=== PATIENT | female | born 2000 | race Caucasian/White ===

== ENCOUNTER 2024-11-26 19:52 | Emergency (ER) | payer OTHER, SELFPAY ==
--- NOTE | ~2024-11-26 | CT_ITS ---
Non-contrast CT scan of the Abdomen and Pelvis Clinical indication: Left flank pain Technique: 2.5 mm axial scans were obtained through the abdomen and pelvis without intravenous or or al contrast. Dose reduction technique was used on this scan by utilizing automated exposure control a nd iterative reconstruction technique. The dose-length product (DLP) was 212.52 mGy-cm. Findings: Images through the lung bases reveal no abnormalities. There is no evidence of renal or ureteral calculi. The kidneys and the ureters are nondilated. The liver, spleen, pancreas, gallbladder, and adrenals appear normal. There is no aortic aneurysm. There is no evidence of bowel obstruction. Images through the pelvis were performed. There is trace pelvic ascites. Urinary bladder unremarkable . No pelvic mass seen. Impression: Trace pelvic ascites, otherwise unremarkable exam. Reviewed, dictated and finalized at location . Impression: Trace pelvic ascites, otherwise unremarkable exam.
--- NOTE | ~2024-11-26 | XR_ITS ---
CHEST RADIOGRAPH CLINICAL HISTORY: fever . COMPARISON: None available TECHNIQUE: Single portable view of the chest. FINDINGS The cardiomediastinal silhouette is unremarkable. The lungs are clear. IMPRESSION: No focal infiltrate or effusion. Reviewed, dictated and finalized at location A.
[2024-11-26 19:56] VITALS: BP 111/69; PULSE 94; RESP 19; TEMP 36.8; O2SAT 99
[2024-11-26 23:23] LABS: BEDSIDEPREGUCG Negative (Negative)
--- NOTE | 2024-11-26 23:34 | ED.BACK ---
HPI - Back Pain/Injury General Chief Complaint: Back Pain/Injury Stated Complaint: DM1 having alot of back pain, nausea, fever Time Seen by Provider: 11/26/24 23:06 History of Present Illness HPI Narrative: 24-year-old female with a history of type 1 diabetes presents to the emergency department for fever, nausea, left flank pain. Patient states about a week ago she began developing pain to her left flank. Today she developed a fever with a T-max of a 100.6?, body aches and chills. Patient states the pain in her left flank waxes and wanes. She is concerned she may have a kidney stone or passed a kidney stone prior to arrival. She states that her urinated earlier she noticed a small streak of blood in her urine and sediment. She is also endorsing some suprapubic abdominal pain. Denies dysuria. She denies cough, congestion, vomiting or diarrhea. Patient reports history of kidney stones but has never had to have a procedure performed for her kidney stones. She notes her blood glucose was elevated to 300 when she woke up this morning and has been having and flowing all day. She has a Dexcom in place but does not have an insulin pump. Patient states she took ibuprofen around 6:00 p.m. today. Related Data Allergies Allergy/AdvReac Type Severity Reaction Status Date / Time No Known Allergies Allergy Verified 11/26/24 19:55 Review of Systems Review of Systems: All systems reviewed & are unremarkable except as noted in HPI and below Exam Narrative: GENERAL: Well-appearing, well-nourished, and in no acute distress. HEAD: Normocephalic, atraumatic. EYES: EOMI. ENT: Nares clear, no rhinorrhea or epistaxis. Mucous membranes moist. NECK: Supple. CHEST: Clear to auscultation. No respiratory distress. HEART: Regular rate and rhythm. No murmur heard. Normal peripheral pulses. ABDOMEN: Soft, nontender, nondistended, normal active bowel sounds. Left CVA tenderness EXTREMITIES: Normal range of motion. No edema. SKIN: Warm, dry, no rash. NEURO: No focal deficits. Alert and oriented x3 Course Vital Signs Vital signs: Vital Signs Temperature 98.2 F 11/26/24 19:56 Pulse Rate 94 11/26/24 19:56 Respiratory Rate 11/26/24 19:56 Blood Pressure 111/69 11/26/24 19:56 Pulse Oximetry 99 11/26/24 19:56 Oxygen Delivery Room Air 11/26/24 19:56 Temperature 98.2 F 11/26/24 19:56 Pulse Rate 68 11/27/24 00:05 Respiratory Rate 16 11/27/24 00:05 Blood Pressure 106/60 11/27/24 00:05 Pulse Oximetry 99 11/27/24 00:05 Oxygen Delivery Room Air 11/26/24 19:56 MDM - Back Pain/Injury MDM Narrative Medical decision making narrative: 24-year-old female with history of type 1 diabetes and kidney stones presents to the emergency department for left flank pain, nausea, fever and chills. See HPI for further history. Triage vitals are stable. Patient is afebrile. Exam is notable for the above. CBC without leukocytosis or anemia. Chemistries show hyperglycemia of 204 with normal bicarb and anion gap, not consistent with DKA. Urinalysis with trace leuk esterase, 2 white blood cells or bacteria, no red blood cells. is negative. Part swabs are negative. Chest x-ray shows no acute cardiopulmonary findings. CT abdomen pelvis shows no nephrolithiasis or obstructive uropathy, no hydronephrosis. Patient received IV fluids, morphine, Zofran with improvement. She is tolerating po intake. On re-evaluation patient is resting comfortably in exam bed but does note that she is starting to feel her pain in her flank return. I suspect she is experiencing ureteral colic from a kidney stone she passed prior to arrival. Will send Zofran and ibuprofen to the pharmacy and gave her Toradol prior to discharge. I advised her to follow-up closely with her PCP and discussed strict ED return precautions. She is agreeable with the plan verbalized understanding. Discharged in stable condition. Lab Data 11/27/24 00:00 11/27/24 00:00 Labs: Lab Results 11/26/24 11/26/24 11/26/24 Range/Units 23:15 23:21 23:54 WBC (4.5-10.0) K/mm3 RBC (4.2-5.4) M/mm3 Hgb (12.0-15.0) g/dL Hct (37.0-47.0) % MCV (80-100) fl MCH (26-34) pg MCHC (32-36) g/dl RDW (11.5-14.5) % Plt Count (150-375) k/mm3 MPV (7.4-10.4) fl Immature Gran % (Auto) (0-0.5) % Neut % (Auto) (45.5-73.1) % Lymph % (Auto) (18.3-44.2) % [place] % (Auto) (2.6-8.5) % Eos % (Auto) (0-4.4) % Baso % (Auto) (0.2-1.2) % Lymph # (Auto) (0.9-3.2) K/mm3 [place] # (Auto) (0.1-0.6) K/mm3 Eos # (Auto) (0-0.3) K/mm3 Baso # (Auto) (0.0-0.1) K/mm3 Abs Immat Gran (auto) (0.00-0.031) K/mm3 Absolute Neuts (auto) (1.3-6.7) K/mm3 Absolute Nucleated RBC (0.0-0.012) K/mm3 Nucleated RBC % (0.0-0.2) % Sodium (137-145) mmol/L Potassium (3.4-5.0) mmol/L Chloride (98-107) mmol/L Carbon Dioxide (22-30) mmol/L Anion Gap (4-12) mmol/L BUN (7-17) mg/dL Creatinine (0.7-1.0) mg/dL Estim Creat Clear Calc ml/min Estimated GFR (59 - ) Glucose (65-110) mg/dL Calcium (8.4-10.2) mg/dL Total Bilirubin (0.2-1.3) mg/dL AST (14-36) U/L ALT (6-35) U/L Alkaline Phosphatase (38-126) U/L Total Protein (6.3-8.2) g/dL Albumin (3.5-5.1) g/dL Lipase (23-300) U/L Urine Color Yellow (Yellow) Urine Appearance Clear (Clear) Urine pH 8.0 (5.0-9.0) Ur Specific [place] 1.009 (1.001-1.035) Urine Protein Negative (Negative) mg/dL Urine Glucose (UA) Negative (Negative) mg/dL Urine Ketones Negative (Negative) mg/dL Ur Blood (Man) Negative (Negative) Urine Nitrate Negative (Negative) Urine Bilirubin Negative (Negative) Urine Urobilinogen 0.2 (<2.0) mg/dL Leukocyte Esterase Rfl Trace H (Negative) LUDA/UL Urine RBC 0-2 (0-2) /hpf Urine WBC 0-5 (0-3) /hpf Ur Squamous Epith Cells None seen (Few) /hpf Urine Bacteria None seen /hpf Urine Casts 0-2 POC Urine HCG, Qual Negative (Negative) Influenza A (RT-PCR) Negative (Negative) Influenza B (RT-PCR) Negative (Negative) RSV (RT-PCR) Negative (Negative) SARS-CoV-2 RNA (RT-PCR) Negative (Negative) 11/27/24 Range/Units 00:00 WBC 5.2 (4.5-10.0) K/mm3 RBC 4.68 (4.2-5.4) M/mm3 Hgb 14.0 (12.0-15.0) g/dL Hct 41.2 (37.0-47.0) % MCV 88.0 (80-100) fl MCH 29.9 (26-34) pg MCHC 34.0 (32-36) g/dl RDW 12.4 (11.5-14.5) % Plt Count 225 (150-375) k/mm3 MPV 10.3 (7.4-10.4) fl Immature Gran % (Auto) 1.2 H (0-0.5) % Neut % (Auto) 62.8 (45.5-73.1) % Lymph % (Auto) 22.6 (18.3-44.2) % [place] % (Auto) 11.8 H (2.6-8.5) % Eos % (Auto) 1.0 (0-4.4) % Baso % (Auto) 0.6 (0.2-1.2) % Lymph # (Auto) 1.17 (0.9-3.2) K/mm3 [place] # (Auto) 0.6 (0.1-0.6) K/mm3 Eos # (Auto) 0.1 (0-0.3) K/mm3 Baso # (Auto) 0.0 (0.0-0.1) K/mm3 Abs Immat Gran (auto) 0.06 H (0.00-0.031) K/mm3 Absolute Neuts (auto) 3.3 (1.3-6.7) K/mm3 Absolute Nucleated RBC 0.000 (0.0-0.012) K/mm3 Nucleated RBC % 0.0 (0.0-0.2) % Sodium 135 L (137-145) mmol/L Potassium 3.9 (3.4-5.0) mmol/L Chloride 102 (98-107) mmol/L Carbon Dioxide 23 (22-30) mmol/L Anion Gap 10 (4-12) mmol/L BUN 10 (7-17) mg/dL Creatinine 0.49 L (0.7-1.0) mg/dL Estim Creat Clear Calc 138 ml/min Estimated GFR > 60 (59 - ) Glucose 204 H (65-110) mg/dL Calcium 9.4 (8.4-10.2) mg/dL Total Bilirubin 0.7 (0.2-1.3) mg/dL AST 26 (14-36) U/L ALT 16 (6-35) U/L Alkaline Phosphatase 57 (38-126) U/L Total Protein 7.7 (6.3-8.2) g/dL Albumin 4.6 (3.5-5.1) g/dL Lipase 36 (23-300) U/L Urine Color (Yellow) Urine Appearance (Clear) Urine pH (5.0-9.0) Ur Specific [place] (1.001-1.035) Urine Protein (Negative) mg/dL Urine Glucose (UA) (Negative) mg/dL Urine Ketones (Negative) mg/dL Ur Blood (Man) (Negative) Urine Nitrate (Negative) Urine Bilirubin (Negative) Urine Urobilinogen (<2.0) mg/dL Leukocyte Esterase Rfl (Negative) LUDA/UL Urine RBC (0-2) /hpf Urine WBC (0-3) /hpf Ur Squamous Epith Cells (Few) /hpf Urine Bacteria /hpf Urine Casts POC Urine HCG, Qual (Negative) Influenza A (RT-PCR) (Negative) Influenza B (RT-PCR) (Negative) RSV (RT-PCR) (Negative) SARS-CoV-2 RNA (RT-PCR) (Negative) Discharge Plan Discharge Clinical Impression: Left flank pain, Nausea Patient Disposition: Home Condition: Stable Instructions: Antibiotic Form, Acute Nausea and Vomiting (DC), Flank Pain (ED) Additional Instructions: You were evaluated in the emergency department for left flank pain, nausea, fevers. You do not have a urinary tract infection in the CT scan does not show evidence of a kidney stone. You may have passed a kidney stone earlier today and are still experiencing spasms of your ureter. Please take the pain medications and nausea medications as directed. Follow-up closely with her primary care provider. Return to the emergency department if you develop a fever of 100.4 or greater, you are unable to tolerate food or fluids, you develop significantly worsening pain, or other concerning symptoms. Patient Language: Arabic Prescriptions: New ibuprofen 800 mg tablet 800 mg PO TID PRN (Reason: pain) Qty: 20 0RF ondansetron 4 mg tablet,disintegrating 4 mg PO Q8H Qty: 14 0RF Follow-up/Referrals: Minor,Iraida Hua APRN [Primary Care Provider] -
[2024-11-26 23:36] LABS: Add Urine Microscopic? YES; Appearance Urine Clear (Clear); Glucose Urine UA Negative (Negative); Leukocyte Esterase Ur Trace LEU/UL (Negative); Nitrate Urine Negative (Negative); Non Pathogenic Casts 0-2; Specific Grav Ur 1.009 (1.001-1.035)
[2024-11-27] VITALS (9 sets, daily range): BP systolic 102–112; BP diastolic 56–63; PULSE 57–75; RESP 14–18; TEMP 37.2; O2SAT 99–100
[2024-11-27] MEDS: MORPHINE SULFATE (*CRX) 4 MG/ML INJ IV PUSH (00:02)
[2024-11-27] MEDS: SODIUM CHLORIDE 0.9% IV 1,000 ML 999 ML IV CONT (00:02)
[2024-11-27] MEDS: ONDANSETRON INJ 4 MG/2 ML VIAL IV PUSH (00:02)
--- OUTSIDE RECORDS SUMMARY | 2024-11-27 00:30 | XMS_ITS | Clinical Summary ---
Author Organization [facility] Address [address] [place] [address] Phone Care Team Providers Care Electric Pile Driver Operator Name Role Phone Minor Iraida Sifuentes APRN, EMISSIONS INSPECTOR Primary Care Provider [phone] Allergies Active Allergy Reactions Criticality Noted Date Comments Gluten Meal Hives High 03/14/2023 Medications INSULIN REGULAR HUMAN IJ by Injection route as needed. Active insulin glargine (LANTUS) 100 UNIT/ML Solution by Subcutaneous route as needed. Active insulin lispro (HumaLOG) 100 UNIT/ML Solution inject by subcutaneous route per prescriber's instructions. Insulin dosing requires individualizatio n. 6 Active cetirizine (ZyrTEC) 10 MG Tablet Take 10 mg by mouth. Active Continuous Blood Gluc Sensor (Dexcom G6 Sensor) Misc CHANGE EVERY 10 DAYS 3 Active Active Problems Problem Noted Date Diagnosed Date Adjustment disorder with mixed anxiety and depre ssed mood 08/12/2015 Immunizations Immunization Administration Dates Next Due Influenza Vaccine Nasal 11/12/2021 Influenza Vaccine, Quadrivalent, PF 07/23/2021 Meningococcal Vaccine 01/19/2019 Social History Tobacco Use Types Packs/Day Years Used Date Smoking Tobacco: Every Day Cigarettes Smokeless Tobacco: Never Tobacco Cessation:Ready to Q uit: Not Asked; Counseling Given: Not Answered Comments:Social cigarette smoker Alcohol Use Standard Drinks/Week Comments No 0 (1 standard drink = 0.6 oz pur e alcohol) Sexually Active Control Partners Comments Yes Male Condom Male Comments No Sex and Gender Information Value Date Recorded Sex Assigned at Not on file Legal Sex Female 1:33 PM CDT Gender Identity Not on file Sexual Orientation Not on file Last Filed Vital Signs Vital Sign Reading Time Taken Comments Blood Pressure 98/56 07/02/2024 6:22 PM CDT Pulse 96 07/02/2024 6:22 PM CDT Temperature 37.3 C (99.2 F) 07/02/2024 6:22 PM CDT Respiratory Rate 20 07/02/2024 6:22 PM CDT Oxygen Saturation 97% 07/02/2024 6:22 PM CDT Inhaled Oxygen Concentration - - Weight 59 kg (130 lb) 03/17/2024 1:47 PM 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 STUDIES Height 170.2 cm (5' 7) 02/01/2024 12:50 AM CDT Body Mass Index 20.36 02/01/2024 12:50 AM CDT Plan of Treatment Health Maintenance Due Date Last Done Comments Hepatitis C Virus (HCV) Screening 2001 TdaP Immunization 2001 Human Papillomavirus (HPV) Immunization (1 - 3-dose series) 2016 Meningococcal B Immunization (1 of 2 - Standard) 2017 Hepatitis B Immunization (1 of 3 - 19+ 3-dose series) 2020 Pneumococcal Immunization Combined (1 of 2 - PCV) 2020 Pap Smear 2022 SARS-COV-2 Immunization (1 - 2023- season) 2023 Influenza Immunization (#1) 2024 07/2 05/2021, 07/23/2021 Respiratory Syncytial Virus (RSV) Immunization (Adult) (1 - 1-dose 75+ series) 2076 Meningococcal Immunization (ACWY) Completed 01/19/2019 Rotavirus Immunization Aged Out No lo nger eligible based on patient's age to complete this topic Insurance [employer] Care Teams Electric Pile Driver Operator Relationship Specialty Start Date End Date Iraida Gaxiola APRN, EMISSIONS INSPECTOR PCP - General Advanced Practice Nurse 02/01/24
--- OUTSIDE RECORDS SUMMARY | 2024-11-27 00:30 | XMS_ITS | Clinical Summary ---
Author Organization [facility] Address [address] [place] [address] Care Team Providers Care Wealth Management Manager Name Role Phone None, Provider MD Primary Care Provider Unavaila ble Allergies No known active allergies Social History Tobacco Use Types Packs/Day Years Used Date Smoking Tobacco: Never Assessed Comments Unknown Sex and Gender Information Value Date Recorded Sex Assigned at Not on file Legal Sex Female 10:24 AM SOLAR SALES ENERGY ADVISOR Gender Identity Not on file Sexual Orientation Not on file Last Filed Vital Signs Vital Sign Reading Time Taken Comments Blood Pressure 123/71 06/01/2023 10:26 AM SOLAR SALES ENERGY ADVISOR Pulse 76 06/01/2023 10:26 AM SOLAR SALES ENERGY ADVISOR Temperature 36.8 C (98.3 F) 06/01/2023 10:26 AM SOLAR SALES ENERGY ADVISOR Respiratory Rate 20 06/01/2023 10:26 AM SOLAR SALES ENERGY ADVISOR Oxygen Saturation 97% 06/01/2023 10:26 AM SOLAR SALES ENERGY ADVISOR Inhaled Oxygen Concentration - - Weight 57.8 kg (127 lb 6.8 oz) 06/01/2023 10:26 AM SOLAR SALES ENERGY ADVISOR Height 170.2 cm (5' 7) 06/01/2023 10:26 AM SOLAR SALES ENERGY ADVISOR Body Mass Index 19.96 06/01/2023 10:26 AM SOLAR SALES ENERGY ADVISOR Plan of Treatment Health Maintenance Due Date Last Done Comments Cervical Cancer Screening Pa p Smear (Age 21 to 29) Every 3 Years 2001 Cervical Cancer Screening 2001 Annual Physical 2004 HPV Vaccines (1 - 3-dose series) 2016 Meningococcal B Vaccine (1 o f 2 - Standard) 2017 Hepatitis C 2019 DTaP, Tdap and Td Vaccines ( 1 - Tdap) 2020 Hepatitis B Vaccines (1 of 3 - 19+ 3-dose series) 2020 COVID-19 Vaccine ( - 2023-2 5 season) 2023 Meningococcal Vaccine Completed 01/19/2019 Pneumococcal Vaccine: Pediat rics (0 to 5 Years) and At-Risk Patients (6 to 49 Years) Aged Out No longer eligi ble based on patient's age to complete this topic RSV Immunizations Under 20 Months Aged Out No longer eligible based on patient's age to complete this topic Insurance [facility] Care Teams Wealth Management Manager Relationship Specialty Start Date End Date None, Provider, PCP - General UNKNOWN PHYSICIAN SPECIALTY 06/01/23
--- OUTSIDE RECORDS SUMMARY | 2024-11-27 00:30 | XMS_ITS | Continuity of Care Document ---
Author Organization [employer] Address [address] [place] [address] Phone Care Team Providers Care Headline Writer Name Role Phone Mitch Jaramillo MD Unavailable Unavailable Allergies, Adverse Reactions, Alerts Substance Reaction Status Criticality No Known Allergies Active No Inform ation Medications Medication Instructions Dosage Effective Dates (start - stop) Status Comments Lantus Solostar U-100 Insulin 100 unit/mL (3 mL) subcutaneous pen inject by subcutaneous route 30 units sc qhs - Active Dexcom G7 Sensor device USE DIRECTED - CHANGE EVERY 10 DAYS - Active insulin lispro (U-100) 100 unit/mL subcutaneous pen inject by subcutaneous route per prescriber's instructions. Insulin dosing requires individualization. 0.00 - Active Basaglar KwikPen U-100 Insulin 100 unit/mL (3 mL) subcutaneous INJECT 30 UNITS SUBCUTANEOUSLY EVERY DAY AT BEDTIME - Active Humalog U-100 Insulin 100 unit/mL subcutaneous solution INJECT 300 UNITS IN RESERVOIR EVERY 2 DAYS DIRECTED - Active vials insulin lispro (U-100) 100 unit/mL subcutaneous solution inject by subcutaneous route 100 units qd. - Active vials Lantus U-100 Insulin 100 unit/mL subcutaneous solution 30 units sc qhs - Active pen needle, diabetic 32 gauge x 5/16 use 6 x qd - Active Dropsafe Insulin Syringe 0.5 mL 31 gauge x 5/16 use 6 x qd - Active Baqsimi 3 mg/actuation nasal spray spray 1 spray by intranasal route into one nostril once may repeat dose in 15 minutes if inadequate response 3 MG - Active Novolog U-100 Insulin aspart 100 unit/mL subcutaneous solution 300 units into reservior every other day - Active vials DEXCOM G6 TRANSMITTER CHANGE EVERY 3 MONTHS - Active Dexcom G7 Water Quality Control Engineer change every 3 months - Active Gvoke PFS 2-Pack 1 mg/0.2 mL subcutaneous syringe inject 0.2 milliliter by subcutaneous route once in the abdomen, thigh, or upper arm may repeat in 15 minutes if inadequate response 1 MG - Active Glucagon (HCl) Emergency Kit 1 mg solution for injection inject 1 milliliter by subcutaneous route once 1 MG - Active sertraline 50 mg tablet take 1 tablet by oral route every day 50 MG - Active Elimite 5 % topical cream apply by topical route (thoroughly massage into skin from head to soles of feet) once leave on for 8-14 hr, then remove by thorough washing 0.00 - Active triamcinolone acetonide 0.1 % topical cream apply by topical route 2 times every day a thin layer to the affected area(s) 0.00 - Active Nexio Ultra Blue Test Strip TEST 8 TIMES A DAY - Active t:slim Insulin Delivery System replace infusion set q 2 days - Active Nexio Delica Lancing Device kit use 6x qd - Active KETOCARE KETONE TEST STRIPS USE WHEN ILL OR HIGH BLOOD SUGARS UP TO 8 TIMES PER DAY - Active Lancets,Ultra Thin use 8x qd - Active USEUMToSyndicatePlus UltraMini kit check 8x qd - Active Lantus Solostar U-100 Insulin 100 unit/mL (3 mL) subcutaneous pen inject by subcutaneous route 30 units sc qhs - No Longer Active Procedures Procedure Date OFFICE [id number]-YVC-KKRN SYST BP LT 130 MM HG DIAST BP < 80 MM HG OFFICE MCIPJ-GIF-METE SYST BP LT 130 MM HG DIAST BP < 80 MM HG OFFICE SQCRZ-AAC-BCDP BODY MASS INDEX DOCD SYST BP LT 130 MM HG DIAST BP < 80 MM HG OFFICE SOTPP-WIU-MFSM SYST BP LT 130 MM HG DIAST BP < 80 MM HG OFFICE AZIPG-DUP-QQAV SYST BP LT 130 MM HG DIAST BP < 80 MM HG OFFICE LRIYH-WXO-JOUQ SYST BP LT 130 MM HG DIAST BP < 80 MM HG OFFICE IFRSH-ENY-OCXM SYST BP LT 130 MM HG DIAST BP < 80 MM HG OFFICE CDFWW-FVM-VIVO BODY MASS INDEX DOCD SYST BP LT 130 MM HG DIAST BP < 80 MM HG IMMUN ADMIN (INC PERCUTANEOUS) SINGLE, F IRST INJ FLU VAC NO PRSV 4 KENROY, 0.5mL DOSAGE Brief Emotional/Behavioral A ssessment, With Scoring/Doct, Per Stndrd Instrument OFFICE RZQUC-UFR-PSJP BODY MASS INDEX DOCD SYST BP LT 130 MM HG DIAST BP < 80 MM HG Brief Emotional/Behavioral A ssessment, With Scoring/Doct, Per Stndrd Instrument Brief Emotional/Behavioral A ssessment, With Scoring/Doct, Per Stndrd Instrument Clin depression screen doc OFFICE FHHJD-RTO-NEKFMTGC BODY MASS INDEX DOCD SYST BP LT 130 MM HG DIAST BP < 80 MM HG IMADM ANY ROUTE 1ST VAC/TOX FLU VAC NO PRSV 4 KENROY, 0.5mL DOSAGE OFFICE FRTSY-CSO-ZVZA BODY MASS INDEX DOCD SYST BP LT 130 MM HG DIAST BP < 80 MM HG OFFICE XVKJQ-ULL-KQOU BODY MASS INDEX DOCD SYST BP LT 130 MM HG DIAST BP < 80 MM HG IMMUN ADMIN (INC PERCUTANEOUS) SINGLE, F IRST INJ FLU VAC NO PRSV 4 KENROY, 0.5mL DOSAGE OFFICE CXUOV-XNJ-LWPH BODY MASS INDEX DOCD Advance Directives Directive Yes / No Effective Date File Name No Information Encounters Encounter Description Practice Location Reason(s) For Visit Diagnoses Date Provider Providers Copied on Encounter [facility], [address], [place], [place], [address] , tel: [phone] [facility] No Information [address] Meyer[address], Suite [facility], [place], [place], [address] , . tel: [phone] OFFICE XBNSC-TBI-HZ MP [facility], [address], [place], [place], [address] , tel: [phone] [facility] acute problem (chief complaint) Type 1 diabetes mellitus without complications 5 Clint Meyer. [address], [address], [place], [place], [address] , [place]. tel: [phone] Referring Provider: Mitch Velasquez, [address], [place], [address] . tel:[phone] [facility], [address], [place], [place], [address] , tel: [phone] [facility] No Information 5 Clint Meyer[address], [address], [place], [place], [address] , [place]. tel: [phone] OFFICE BJJYM-MQD-JT [facility], [address], [place], [place], [address] , tel: [phone] [facility] acute problem (chief complaint) Type 1 diabetes mellitus without complications 4 Clint Meyer. [address], [address], [place], [place], [address] , [place]. tel: [phone] Referring Provider: Mitch Velasquez, [address], [place], [address] . tel:[phone] [facility], [address], [place], [place], [address] , tel: [phone] [facility] Type 1 diabetes mellitus without complications 4 Clint Meyer. [address], [address] [facility], [place], [place], [address] , [place]. tel: [phone] [facility] [address], [address], [place], [place], [address] , tel: [phone] [facility] No Information 4 Clint Meyer. [address], [address], [address] , [place]. tel: [phone] [facility] [address], [address], [place], [place], [address] , tel: [phone] [facility] No Information 4 Clint Meyer. [address], [address], [place], [place], [address] , [place]. tel: [phone] OFFICE UAOLU-UZR-FJ [facility], [address], [place], [place], [address] , tel: [phone] [facility] acute problem (chief complaint) Diabetes mellitus type 1, controlled, without complications 4 Clint Meyer. [address], [address], [place], [place], [address] , [place]. tel: [phone] Referring Provider: Mitch Velasquez, [address], [place], [address] . tel:[phone] [facility], [address], [place], [place], [address] , tel: [phone] [facility] No Information 4 Clint Meyer. [address], [address], [place], [place], [address] , [place]. tel: [phone] [facility] [address], [address], [place], [place], [address] , tel: [phone] [facility] Diabetes mellitus type 1, controlled, without complications 4 Clint Meyer. [address], [address], [place], [place], [address] , [place]. tel: [phone] [facility] [address], [address], [place], [place], [address] , [place] tel: [phone] [facility] Type 1 diabetes mellitus without complication 3 Clint Meyer. [address], [address], [place], [place], [address] , [place]. tel: [phone] OFFICE MLTTZ-NRM-BI [facility], [address], [place], [place], [address] , [place] tel: [phone] [facility] acute problem (chief complaint) Type 1 diabetes mellitus without complications 3 Clint Meyer. [address], [address], [place], [place], [address] , [place]. tel: [phone] Referring Provider: Mitch Velasquez, [address], [place], [address] . tel:[phone] OFFICE ISTLN-RBH-QW [facility], [address], [place], [place], [address] , tel: [phone] [facility] acute problem (chief complaint) Type 1 diabetes mellitus without complications 3 Clint Meyer. [address], [address], [place], [place], [address] , [place]. tel: [phone] Referring Provider: Mitch Velasquez, [address], [place], [address] . tel:[phone] OFFICE QZRCR-UYW-HL [facility], [address], [place], [place], [address] , [place] tel: [phone] [facility] acute problem (chief complaint) Type 1 diabetes mellitus without complications 3 Clint Meyer. [address], [address], [place], [place], [address] , [place]. tel: [phone] Referring Provider: Mitch Velasquez, [address], [place], [address] . tel:[phone] OFFICE EYEMI-VSN-SV [facility], [address], [place], [place], [address] , [place] tel: [phone] [facility] acute problem (chief complaint) Type 1 diabetes mellitus without complicationsFat igue, unspecified type 2 Clint Meyer[address], [address], [place], [place], [address] , [place]. tel: [phone] Referring Provider: Mitch Velasquez, [address], [place], [address] . tel:[phone] OFFICE DUFRL-RCN-GV [facility], [address], [place], [place], [address] , tel: [phone] [facility] acute problem (chief complaint) Type 1 diabetes mellitus without complications 2 Clint Meyer[address], [address], [place], [place], [address] , [place]. tel: [phone] Referring Provider: Fransisca Singh, [place], [address]. tel:[phone] OFFICE ESHOV-VXG-IS [facility], [address], [place], [place], [address] , tel: [phone] [facility] acute visit (chief complaint) Type 1 diabetes mellitus without complicationsAnx iety Jun- 1 Clint Meyer[address], [address], [place], [place], [address] , [place]. tel: [phone] Referring Provider: Mitch Velasquez, [address], [place], [address] . tel:[phone] OFFICE GYJLP-IOE-CH [facility], [address], [place], [place], [address] , tel: [phone] [facility] acute visit (chief complaint) Type 1 diabetes mellitus without complicationsAnx ietyScabies 0 Clint Meyer. [address], [address], [place], [place], [address] , [place]. tel: [phone] Referring Provider: [address], [place], [address] . tel:[phone] [facility], [address], [place], [place], [address] , tel: [phone] [facility] No Information 0 Clint Meyer. [address], [address], [place], [place], [address] , [place]. tel: [phone] OFFICE KKAEZ-NGN-BS [facility], [address], [place], [place], [address] , tel: [phone] [facility] acute visit (chief complaint) Type 1 diabetes mellitus without complicationsAnx iety 0 Clint Meyer. [address], [address], [place], [place], [address] , [place]. tel: [phone] Referring Provider: [address], [place], [address] . tel:[phone] OFFICE QGERO-JZZ-FM [facility], [address], [place], [place], [address] , tel: [phone] [facility] acute visit (chief complaint) Type 1 diabetes mellitus without complications Fe-2 0-202 0 Clitn Meyer. [address], [address], [place], [place], [address] , [place]. tel: [phone] Referring Provider: Fransisca Singh, [address] [place], [address]. tel:[phone] [facility], [address], [place], [place], [address] , tel: [phone] [facility] Type 1 diabetes mellitus without complicationsFat igue, unspecified type Jan-0 3 9 Clint Meyer. [address], [address], [place], [place], [address] , [place]. tel: [phone] OFFICE WQCKR-ZXI-VY [facility], [address], [place], [place], [address] , [place] tel: [phone] [facility] acute visit (chief complaint) Type 1 diabetes mellitus without complication 0 9 Clint Meyer. [address], [address], [place], [place], [address] , [place]. tel: [phone] Referring Provider: Fransisca Singh, [address] [place], [address]. tel:[phone] [facility], [address], [place], [place], [address] , tel: [phone] [facility] acute visit (chief complaint) Hematuria, unspecified typeType 1 diabetes mellitus without complication 9 Clint Meyer. [address], [address], [place], [place], [address] , [place]. tel: [phone] Referring Provider: Fransisca Singh, [address] [place], [address]. tel:[phone] [facility], [address], [place], [place], [address] , [place] tel: [phone] [facility] No Information 9 Clint Meyer. [address], [address], [place], [place], [address] , [place]. tel: [phone] [facility], [address], [place], [place], [address] , [place] tel: [phone] [facility] Fatigue, unspecified type Jun-2 9 Tao Douglas. [address], [address], [place], [place], [address] , [place]. tel: [phone] [facility], [address], [place], [place], [address] , tel: [phone] [facility] Fatigue, unspecified type 9 Clint Meyer. [address], [address], [place], [place], [address] , [place]. tel: [phone] [facility], [address], [place], [place], [address] , [place] tel: [phone] [facility] Type 1 diabetes mellitus without complication 0 9 Clint Meyer. [address], [address], [place], [place], [address] , [place]. tel: [phone] Referring Provider: Fransisca Singh, [address] [place], [address]. tel:[phone] [facility], [address], [place], [place], [address] , [place] tel: [phone] [facility] Type 1 diabetes mellitus without complicationAcut e otitis media, bilateral 8 Clint Meyer. [address], [address], [place], [place], [address] , [place]. tel: [phone] Referring Provider: Fransisca Singh, [address] [place], [address]. tel:[phone] [facility], [address], [place], [place], [address] , [place] tel: [phone] [facility] No Information 8 Clint Meyer. [address], [address], [place], [place], [address] , [place]. tel: [phone] [facility], [address], [place], [place], [address] , tel: [phone] [facility] Type 1 diabetes mellitus without complication 8 Clint Meyer. [address], [address], [place], [place], [address] , [place]. tel: [phone] Referring Provider: Mitch Velasquez, [address], [place], [address] . tel:[phone] [facility], [address], [place], [place], [address] , tel: [phone] [facility] Type 1 diabetes mellitus without complicationStantonpeterson jaimee, unspecified type 8 Clint Meyer. [address], [address], [place], [place], [address] , [place]. tel: [phone] Referring Provider: Fransisca Singh, [place], [address]. tel:[phone] [facility], [address], [place], [place], [address] , [place] tel: [phone] [facility] No Information 7 Clint Meyer. [address], [address], [place], [place], [address] , [place]. tel: [phone] [facility], [address], [place], [place], [address] , tel: [phone] [facility] Type 1 diabetes mellitus without complication 7 Clint Meyer. [address], [address], [place], [place], [address] , [place]. tel: [phone] Referring Provider: Fransisca Singh, [address] [place], [address]. tel:[phone] [facility], [address], [place], [place], [address] , tel: [phone] [facility] Type 1 diabetes mellitus without complicationLion hermosillo, unspecified type August- 7 Clint Meyer. [address], [address], [place], [place], [address] , [place]. tel: [phone] Referring Provider: Fransisca Singh, [address] [place], [address]. tel:[phone] [facility], [address], [place], [place], [address] , tel: [phone] [facility] No Information 7 Nichelle Cutler. [address], [address], [place], [place], [address] , [place]. tel: [phone] [facility], [address], [place], [place], [address] , tel: [phone] [facility] Type 1 diabetes mellitus without complication 7 Clint Meyer[address], [address], [place], [place], [address] , [place]. tel: [phone] Referring Provider: Mitch Velasquez, [address], [place], [address] . tel:[phone] [facility], [address], [place], [place], [address] , tel: [phone] [facility] Type 1 diabetes mellitus without complication 6 Clint Meyer[address], [address], [place], [place], [address] , . tel: [phone] Referring Provider: Mitch Velasquez, [address], [place], [address] . tel:[phone] [facility], [address], [place], [place], [address] , tel: [phone] Brenda Russell Type 1 diabetes mellitus without complication 6 [address] Meyer[address], [address], [place], [place], [address] , . tel: [phone] Referring Provider: Mitch Velasquez, [address], [place], [address] . tel:[phone] Family History Family Member Type Diagnosis Age At Onset No Information Immunizations Vaccine Date Status Comments Fluzone Quad, preservative free, split virus, 0.5mL dosage administered Source: New Immuniza tion Record Fluzone Quad, preservative free, split virus, 0.5mL dosage administered Source: New Immuniza tion Record Fluzone-Flulaval Quad, preservative free, split virus, 0.5mL dosage administered Source: New Immuniza tion Record Payers Payer name Insurance type Covered alliance party ID Authoriza tion(s) [employer] CI [id number] [facility] CI [id number] [facility] CI [id number] [facility] CI [id number] [facility] CI [id number] [employer] OPEN ACCESS CI [id number] Social History Type Description Quantity Date Captured Comments Sex Female Smoking Status No Information Chief Complaint And Reason For Visit No Information Reason For Referral Reason For Referral No Information Plan Of Treatment Date Type Action Status Future Order: Lab Order (tTG) Ig A -Tissue Transglutaminase ([id number]), Ordered on: Ordered Future Order: Lab Order Immunogl obulin A (IgA) ([id number]), Ordered on: Ordered Future Order: Lab Order Free T4 (FT4) ([id number]), Ordered on: Ordered Future Order: Lab Order Lipid Pa lurdes W/Reflex To Direct LDL ([id number]), Ordered on: Ordered Future Order: Lab Order Hemoglob in A1c ([id number]), Ordered on: Ordered Future Order: Lab Order TSH - Th yroid Stimulating Hormone ([id number]), Ordered on: Ordered Future Order: Lab Order Microalb umin/Creatinine Ratio ([id number]), Ordered on: Ordered History Of Present Illness Encounter Date Complaint History Of Prese nt Illness acute problem Chief complaint: type 1 diabetes. Type 1 diabetes diagnosed in 2015. On intesnvie therapy by means of multiple daily injections and a real time continuous glucose monitor. SInce last seen in November, she reports she has been doing well. Her lantus dose is 20 units. Carbohydrate to insulin ratio is 8/1. She is able to recognize mild hypoglycemia. No trouble with severe or ncturnal hypoglcyemia. She has glucagon where she lives. She knows she is due for an eye exam to screen fro retinopathy. Summer states she has had some difficulty with prolonged symptoms after a concussion. The rest fo her review of systems, family history, and social history are unchanged. acute problem Chief complaint: type 1 diabetes. Type 1 diagnosed in 2015. On intensive therapy by means of multiple daily injections a dn a real time continuous glucose monitor, the Decom G7. Since last seen in June, she has been healthy. She has had an eye exam to screen for retinopathy. Her basal insulin is now 29 units of Lantus. Carbohydrate to insulin ratio is 8/1. Summer can recognize mild hypoglycemia. No trouble with severe or nocturnal hypoglycemia. She had nasal glucagon where she lives. he rest of her review of systems, family history, and social history are unchanged. acute problem Chief complaint: diabetes. diagnosed in . On insulin pump and CGM. [place] trip [place] concern regarding retinopathy. Basal rates are as follows:12 am: 1.23 am: 1.17 am 1.159 pm 1.2carb to insulin ratio 9/1. needs refill of baqsimi, Recognizes mild hypoglycemia and no trouble with severe or nocturnal hypoglycemia. The rest of her review of systems, family history, and social history are unchanged. acute problem Chief complaint: type 1 diabetes. Type 1 diabetes diagnosed on 2015. On intensive therapy by the closed loop Tslim pump and dexcom G6 continuous real time glucose monitor. Since I last saw Awilda in August, she reports doing better with her diabetes. Her basal rate is 1.65 units per hour. Carbohydrate to insulin ratio is 9/1 for breakfast and 8/1 thereafter. Awilda is able to recognize mild hypoglycemia. No trouble with severe or nocturnal hypoglycemia. She has glucagon but lives alone. Awilda knows she is due for an eye exam. Awilda is not interested in contraception. In August negative urine screen for microalbuminuria. Last thyroid screen was a year ago. Last lipid profile was in 2019. Awilda is being treated by a mental health provider for difficulty with mood. 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 Awilda plans to get a flu shot at work soon. The rest of her review of systems, family history, and social history are unchanged. acute problem Chief complaint: type 1 diabetes. Type I diabetes diagnosed in 2015. On intensive therapy by means of a closed loop pump, the T=Slim. His LSR in April, awilda stations been doing well with her diabetes. She is not done a blood test since January. She plan to do one today. Her diabetes regimen is as follows:basal regimen:12 AM: 1.2 units per hour3 AM: 1.1 units per hour7 AM: 1.15 units per hour9 PM: 1.2 units per hourInsulin ratio is 8/1 from midnight to 3 AM and 9/1 thereafter. She does not have glucagon where she lives. She has her own house and lives by herself. She knows she is due for an eye exam. Awilda is able recognize mild hypoglycemia. No difficulty with severe or nocturnal hypoglycemia. She's been followed by her primary care doctor due to concern about hyperbilirubinemia with a bilirubin of three the rest of her review of systems, family history, and social history are unchanged acute problem Chief complaint: Type One diabetes. Type I diabetes diagnosed in 2015. On intensive therapy by means of a closed loop pump system with her tandem insulin pump and the cloud usingTelefonica G6. Since I last saw her in January, she continues to do well there diabetes. Awilda is able recognize mild hypoglycemia. No difficulty with severe or nocturnal hypoglycemia. She has glucagon where she lives with her boyfriend. She has had an annual eye exam to screen for retinopathy. She is not interested in an influenza vaccine today. She now has a full-time job. The rest of her review of systems, family history, and social history are unchanged. acute problem Chief complaint: type 1 diabetes. Type I diabetes diagnosed in 2015. On intensive therapy by means of an insulin pump and a real-time continuous glucose monitor. She is using the closed loop system with her Tslim pump. Since I last saw her in July, she reports she is doing well with her diabetes. Her regimen is as follows:basal insulin:12 AM: 1.2 units per hour3 AM: 1.1 units per hour7 AM: 1.2 units per hourcarbohydrate insulin ratio: 9/1she is able recognize mild hypoglycemia. No difficulty with severe or nocturnal hypoglycemia. They have glucagon where she lives with her boyfriend. She would like to hold off on her influenza vaccine at this moment. In July, her hemoglobin A1c was 8.1% with a negative urine screen for microalbumin and normal thyroid studies. Her last lipid screen was normal in 2019. This should be done every three years according to the [place] [employer]. She's only using condoms for prevention of . This has been a conversation we have had countless times. Recently she has been bothered by fatigue, hives, joint pain, and insomnia. She would like to have laboratory studies done regarding this. She is also in need of a new primary care doctor. The rest of her review systems, family history, and social history are unchanged. acute problem Chief complaint: diabetes. acute visit acute visit (comments) 20-year-o ld with type I diabetes diagnosed in 2015. On intensive therapy by means of an unsulin pump and a real-time continuous glucose monitor. Since I last saw her in March, she has decided not to take sertraline for anxiety. She has seen a therapist but is not seeing one currently. She is not interested in contraception and prefers to use condoms only. She has been having trouble with hypoglycemia when she corrects. Right now her correction factor is 80. Her basal rate is 1.15 from 10 PM to 3 AM and then 1.1 from 3 AM to 7 AM. The rest of her basal rate is 1.15. Her carbohydrate to insulin ratio is 8/1 except between 10 PM and 3 AM when it is 9/1. She is able recognize symptoms of mild hypoglycemia. She needs a refill of her glucagon. She has had an eye exam in the past year. The rest of her review systems, family history, and social history are unchanged. acute visit (comments) Did take 25 of Zoloft for one month. Did not notice any difference. Did not want to continue due to concern that she may have a genetic defect that would not allow her to absorb this medication effectively. Has not seen psychology regarding cognitive behavioral therapy. Her anxiety has been giving her trouble lately. Was recently seen in urgent care for a rash that itched. Was diagnosed with highs in treated with prednisone. Subsequently her blood sugars have been higher. The rash still itches. acute visit acute visit Chief complaint: diabetes. acute visit (comments) Type 1 di abetes diagnosed in . On intensive therapy by means of an insulin pump. Since I last saw her in May, she reports she has done well with her diabetes. Summer is no longer using her real time continuous glucose monitor. Hr diabetes regimen is unchanged. Awilda is able to recognize mild hypoglycemia. No trouble with severe or nocturnal hypoglycemia. She needs a refill of her glucagon. She has had an eye exam to screen for retinopathy. She is working at [employer] and just moved in with her boyfriend Gatito. They are using condoms only for contraception. She is considering other forms of contraception. Awilda is seeing a therapist for anxiety who has recommended medication. The rest of her review of systems, family history, and social history are unchanged. acute visit (comments) Type I di abetes diagnosed in 2015. On intensive therapy by means of an insulin pump and a real-time continuous glucose monitor. Since I last saw her in January, she reports that for a while, her blood sugars were higher than her target range. Lately they have been much better. Her diabetes regimen is as follows:basal insulin:12 AM: 1.15 units per hour3 AM: 1.13 units per hour7 AM: 1.15 units per hour10 PM: 1.03 units per hourcarbohydrate insulin ratio: 9/1 until 7 AM when it is 8/1 thereafter. Awilda is able recognize symptoms of mild hypoglycemia. No difficulty with severe or nocturnal hypoglycemia. She has glucagon where she lives. 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 On January 22, her hemoglobin A1c was 8.6%. She's been having trouble with painful cycles although they are regular. She is going to see a pulper tender in the near future regarding concern about endometriosis. She is already had a seasonal inactivated influenza vaccine. The rest of her review systems, family history, and social history are unchanged. acute visit Chief complaint: diabetes. acute visit Chief complaint: type 1 diabetes. acute visit (comments) Type I di abetes diagnosed in 2015. On intensive therapy by means of a insulin pump and a real-time continuous glucose monitor. Since I last saw her for diabetes in June, Awilda thinks her glycemic control may be a little worse than before. On June 22, her hemoglobin A1C was 7.7%. Also at that time, she had normal thyroid studies. She came to the office today with her mom. Her mom is trying to have her daughter become more independent and be responsible for both her diabetes and other areas of her life. Her diabetes regimen is as follows:basal insulin:12 AM: 1.8 units per hour3 AM: 1.65 units per hour7 PM: 1.8 units per hourcarbohydrate insulin ratio: 9/1 at midnight and 8/1 after 7AM.Awilda is able recognize symptoms of mild hypoglycemia. No difficulty with severe or nocturnal hypoglycemia. They are interested in switching from glucagon to Baqsimi. This is a new nasal form of glucagon that helps mitigate user error in times of crisis as one just sprays it up the nose and is as effective and as fast onset as an intramuscular injection. Awilda wanted to discuss contraceptive options. Currently she and her mom are considering an intrauterine device and will discuss that with her pulper tender. 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 The rest of her review systems, family history, and social history are unchanged. acute visit Chief complaint: diabetes. Symptoms started 5 days ago; are stable. 4 days of fatigue and then back pain fever 101 5/ [place] not filled lmp 1 week ago uses condoms consider contraception checking blood sugars 4 times daily and is able to adjust insulin as needed Functional Status Date Functional Assessmen t No Information Instructions Date Instruction Additional Infor kim will call with sale[employer] if you need help with your diabetes Related to Type 1 diabetes mellitus without complications will call [phone] with resultscall if you need help with your diabetes Related to Type 1 diabetes mellitus without complications will call with aic r esultsgo to retina consultants call if you need help with your diabetes Related to Diabetes mellitus type 1, controlled, without complications will call with lab r esultsget screen for retinopathy Related to Type 1 diabetes mellitus without complications will call with lab r esultsget an annual eye exam to screen for retinopathy call if you need help with your diabetes Related to Type 1 diabetes mellitus without complications LAST AIC 7.5% in Jan hafsa which is excellentcall if you need help with your diabetesto repeat aic in screen for celiac disease and urine for microalbumingetting a flu vaccine will help keep you out of the hospital Related to Type 1 diabetes mellitus without complications will call with lab r esultsmake appointment to see Dr. Bhavana Messer [phone] Related to Fatigue, unspecified type will call with aic r [employer]ultscallif you need help with your diabetesget a flu vaccine soon Related to Type 1 diabetes mellitus without complications will call with lab r esults call if trouble with diabetesflu shot Related to Type 1 diabetes mellitus without complications call if you need help with anxie ty Related to Anxiety will call with aic r esult and screen for microalbumin call if you need help with your diabetes decrease correction to prevent frequent hypoglycemia Related to Type 1 diabetes mellitus without complications your rash is due to scabiestake a bath tonight and apply this cream on all your skin except face and scalp leave o n overnight and wash off in amthen do your linenyour boyfriend should do this as wellyou need to repeat this i n a week the rash an d itching may last a while as the itching is due to the feces of this microscopic miteuse triamcinolone cream for itching Related to Scabies to increase dose of seretraline to 50 mgthere is no evidence that any disease will affect absorption will arrange for cognitive behavorial therapy which will help your anxiety Related to Anxiety to repeat aic before next visit in April call if you need help with your diabetes Related to Type 1 diabetes mellitus without complications continue seeing ther apist start 25 mg of sertraline (Zoloft) deboy return to see me in a month Related to Anxiety will call with [employer] flu shot call if you need help with your diabetes Related to Type 1 diabetes mellitus without complications will call with [facility] will also screen for cholesterol and thyroid status if at or close to [place], to repeat before next visit in September call if any concerns about your diabetes Related to Type 1 diabetes mellitus without complications will call with [employer] call if you need help with your diabetesreturn to see me in May flu vaccine today Related to Type 1 diabetes mellitus without complication call if yo need help with your d iabetes Related to Type 1 diabetes mellitus without complication no blood in urine to day or sign of urinary tract infection will call with urine culture resultpregnancy test negativecall if worse or other concernsdiabetes check in October Related to Hematuria, unspecified type Assessments Type Assessment Date No Information Patient Care Teams Name Effective Dates (start - stop) Status Members No Information
--- OUTSIDE RECORDS SUMMARY | 2024-11-27 00:30 | XMS_ITS | Referral Summary ---
Author Organization [facility] ospital Address [address] [place] [address] Care Team Providers Care Coffin Maker Name Role Phone Clint Sams MD, Mitch Unavailable [phone] Yusuf Simmons MD Unavailable [phone] Iraida Gaxiola NP Primary Care Provider [phone] Allergies Active Allergy Reactions Criticality Noted Date Comments Gluten Hives High 03/14/2023 Medications insulin lispro (HumaLOG) 100 unit/mL injection inject by subcutaneous route per prescriber's instructions. Insulin dosing requires individualization. 0 vial 0 10/27/19 16 Active cetirizine (ZyrTEC) 10 mg tablet Take 1 tablet (10 mg total) by mouth daily Active Dexcom G6 Transmitter device CHANGE EVERY 3 MONTHS 11/28/19 23 Active Dexcom G6 Sensor device CHANGE EVERY 10 DAYS 01/16/20 23 Active vortioxetine (TRINTELLIX) 5 mg tabletIndicatio ns:major depressive disorder Take 1 tablet (5 mg total) by mouth daily 28 tablet 06/06/19 24 Active Additional Information Patient not taking.Reported on 03/12/2024 Baqsimi 3 mg/actuation spray,non-aeros ol 06/30/19 24 Active NOT IN DATABASE, PRESCRIPTION, Drug name: Oropape Dose: Route: Frequency: Duration: Active lithium 150 mg capsule Take 1 capsule (150 mg total) by mouth 2 (two) times a day with meals Active BASAGLAR 100 unit/mL (3 mL) pen for injection INJECT SUBCUTANEOUSLY 30 UNITS DIRECTED 11/24/19 Active cyclobenzaprine (FLEXERIL) 5 mg tablet 03/05/20 Active Active Problems Problem Noted Date Diagnosed Date Substance abuse, binge pattern 06/06/2023 Type 1 diabetes mellitus with hyperglycemia 02/22 Assessment & Plan (07/04/2023 4:00 PM CDT): Will 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 Jaramillo (endo) and states she last saw him approximately 3 months ago. Will need to get records. Generalized anxiety disorder 03/10/2022 Assessment & Plan (03/10/2022 12:34 PM LOG TURNER): Pt used to be on Sertraline but states it wasn't the correct medication for her. She is currently finding a counselor and will follow up sooner if she feels she needs to trial medication again. Denies SI. MTHFR mutation 03/10/2022 Hives 03/10/2022 Assessment & Plan (03/10/2022 12:33 PM LOG TURNER): Chronic, sees Dr. Simmons (nurse esthetician) and takes Zyrtec. Will use Benadryl prn. Adjustment disorder with mixed anxiety and depre ssed mood 08/12/2015 Assessment & Plan (07/04/2023 4:01 PM CDT): Has improved now that she is on lithium. She is also getting outpatient therapy and will be assigned a psychiatrist soon. Return to work form signed and they will be working around her intensive outpatient therapy Type 1 diabetes mellitus 06/16/2015 Resolved Problems Problem Noted Date Diagnosed Date Resolved Date Chronic tonsillitis 08/10/2018 12/10/19 Assessment & Plan (08/10/2018 12:25 PM CDT): Finish this round of Antibiotics - Amoxicillin Have wisdom teeth surgery completely healed up Continue Flonase Wear retainer Avoid all ear cleaning techniques Avoid water to ears Hearing test - call with results Discussed criteria for tonsillectomy TMJ arthritis 08/10/2018 12/09/2018 Assessment & Plan (08/10/2018 12:25 PM CDT): Finish this round of Antibiotics - Amoxicillin Have wisdom teeth surgery completely healed up Continue Flonase Wear retainer Avoid all ear cleaning techniques Avoid water to ears Hearing test - call with results Sore throat 08/07/2018 12/09/2018 Assessment & Plan (08/07/2018 3:41 PM CDT): You may gargle with warm salt water, suck on throat lozenges, or throat sprays Use a decongestant for your congestion. You can dry up your runny nose with an antihistamine Elevate your pillow at night when you are sleeping to reduce the drainage down your throat. Please follow up with your PCP if you are not getting any better Tonsillolith 03/14/2018 12/09/2018 Assessment & Plan (03/14/2018 3:03 PM LOG TURNER): Right sided superior aspect of tonsil Warm salt water gargles and spits after meals and before bedtime or use mouth wash Bilateral impacted cerumen 03/13/2018 0 12/09/2018 Assessment & Plan (08/10/2018 12:24 PM CDT): Avoid all ear cleaning techniques Avoid water to ears Hearing test - call with results Dysfunction of both eustachian tubes 03/13/2018 12/09/2018 Assessment & Plan (03/14/2018 3:03 PM LOG TURNER): Flonase 2 sprays into each nostril while looking down over the sink, do not sniff in or blow nose after use. Hearing loss 03/13/2018 12/09/2018 Assessment & Plan (08/10/2018 12:24 PM CDT): Hearing test - call with results Assessment & Plan (03/14/2018 3:02 PM LOG TURNER): Follow up with a hearing test in 4-6 weeks Otitis externa 02/18/2016 12/09/2018 Overview (08/04/2016): Otitis externa Assessment & Plan (03/14/2018 3:02 PM LOG TURNER): Start ear drops to both ears, let drops sit for ten minutes twice daily Avoid ear cleaning Avoid water to ears Medical examinations/reports status 01/31/2012 12/09/2018 Overview (07/29/2016): Health care maintenance Strep pharyngitis 01/31/2012 12/09/2018 Overview (07/29/2016): Streptococcal pharyngitis Assessment & Plan (08/07/2018 3:41 PM CDT): Complete antibiotic as prescribed Tylenol or Motrin for fever/pain Gargle with warm salt water (1tsp salt/1 cup water) Suck on ice chips, popsicles, cough drops, or throat lozenges You may return to work, daycare, or school 24 hours after starting antibiotics and you are fever free Do not share food, drinks, or utensils Replace your toothbrush within 24 hours after starting antibiotics and again after 4-5 days. I recommend washing your pillow cases and sheets after 24 hours Follow up with your PCP if you are not getting better Immunizations Immunization Administration Dates Next Due Influenza LAIV (Nasal) 11/12/2021 Influenza, Quadrivalent, Spl it, Preservative Free, Intramuscular 07/23/2021 Influenza, Unspecified 06/06/2023(Deferr ed: Patient Refused),04/24/2022(Deferred: Patient Refused) Meningococcal MCV4P (Menactra) 01/19/2019 Social History Tobacco Use Types Packs/Day Years Used Date Smoking Tobacco: Never Smokeless Tobacco: Never Tobacco Cessation:Counseling Given: Not Answered PHQ-2 Answer Date Recorded PHQ-2 Total Score (If total score is 3 or more points, staff should administer the PHQ-9) 2 12/14/2023 Comments No Sex and Gender Information Value Date Recorded Sex Assigned at Not on file Legal Sex Female 11:45 AM LOG TURNER Gender Identity Not on file Sexual Orientation Not on file Last Filed Vital Signs Vital Sign Reading Time Taken Comments Blood Pressure 98/54 03/12/2024 6:47 PM LOG TURNER Pulse 68 03/12/2024 6:47 PM LOG TURNER Temperature 36.7 C (98 F) 03/12/2024 6:47 PM LOG TURNER Respiratory Rate 19 03/12/2024 6:47 PM LOG TURNER Oxygen Saturation 98% 03/12/2024 6:47 PM LOG TURNER Inhaled Oxygen Concentration - - Weight 61.2 kg (135 lb) 03/12/2024 6:47 PM LOG TURNER Height 170.2 cm (5' 7) 03/12/2024 6:47 PM LOG TURNER Body Mass Index 21.14 03/12/2024 6:47 PM LOG TURNER Plan of Treatment Not on file Procedures Procedure Name Priority Date/Time Associated Diagnosis Comments EGFR Routine 03/10/2022 11:21 AM LOG TURNER Type 1 diabetes mellitus with hyperglycemia (HCC) LIPID PANEL Routine 03/10/2022 11:21 AM LOG TURNER Type 1 diabetes mellitus with hyperglycemia (HCC) THYROID FUNCTION CASCADE Routine 03/10/2022 11:21 AM LOG TURNER Anxiety HEMOGLOBIN A1C STAT 03/23/2020 10:36 PM LOG TURNER from Last 3 Months or Most Recently Relevant to Health Maintenance Results * eGFR (03/10/2022 11:21 AM LOG TURNER) eGFR 135 mL/min/1. 73 m2 KEVIN ALEXIS Comment: Interpretive Data Reference Interval Normal >/= 90 mL/min/1.73m2 Mildly decreased* 60 - 89 mL/min/1.73m2 Mildly to moderately decreased 45 - 59 mL/min/1.73m2 Moderately to severely decreased 30 - 44 mL/min/1.73m2 Severely decreased 15 - 29 mL/min/1.73m2 Kidney Failure < 15 mL/min/1.73m2 *Relative to young adult level Estimated glomerular filtration rate is determined by the 2020 CKD-EPI equation recommended by the National Kidney Foundation (A Unifying Approach to GFR Estimation: Recommendations of the NKF-ASK Task Force on Reassessing the Inclusion of Race in Diagnosing Kidney Disease, JASN 2020). The CKD-EPI equation should not be used for patients with unstable renal function and has not been validated in children and those over 70. Current interpretive data was last reviewed 2021. Blood 03/10/2022 11:2 1 AM LOG TURNER 03/10/2022 2:14 PM LOG TURNER us Iraida Gaxiola SERVICE DELIVERY CONSULTANT LAB BLOOD ORDERABLES Final Resul t Performing Organization Address [facility] Co de Phone Number KEVIN [phone] [address] [place] [address] * TSH reflex to free T4 (03/10/2022 11:21 AM LOG TURNER) TSH 1.77 0.30 - 4.20 mcIUnit/mL KEVIN Blood 03/10/2022 11:2 1 AM LOG TURNER 03/10/2022 2:13 PM LOG TURNER us Iraida Gaxiola SERVICE DELIVERY CONSULTANT LAB BLOOD ORDERABLES Final Resul t Performing Organization Address [facility] de Phone Number KEVIN [phone] [address] [employer] [place] [address] * Lipid panel (03/10/2022 11:21 AM LOG TURNER) Cholesterol 122 30 - 199 mg/dL KEVIN ALEXIS Comment: Interpretive Data Ages < or = 19 years Acceptable: <170 mg/dL Borderline high: 170-199 mg/dL High: >or= 200 mg/dL Ages > or = 20 years Desirable: <200 mg/dL Borderline high: 200-239 mg/dL High: >or= 240 mg/dL Literature References: 1. Expert Panel on Integrated Guidelines for Cardiovascular Health and Risk Reduction in Children and Adolescents. Pediatrics 2011;128:S213 2. NCEP Expert Panel. Circulation 2004;110:227 Current Interpretive Data was last revised on 2017. Triglycerides 23 <=149 mg/dL KEVIN ALEXIS Comment: Interpretive Data Ages < or = 9 years Acceptable: <75 mg/dL Borderline high: 75-99 mg/dL High: >or= 100 mg/dL Ages 10 to 20 years Acceptable: <90 mg/dL Borderline high: 90-129 mg/dL High: >or= 130 mg/dL Ages > or = 20 years Desirable: <150 mg/dL Borderline high: 150-199 mg/dL High: 200-499 mg/dL Very high: >or= 499 mg/dL Literature References: 1. Expert Panel on Integrated Guidelines for Cardiovascular Health and Risk Reduction in Children and Adolescents. Pediatrics 2011;128:S213 2. NCEP Expert Panel. Circulation 2004;110:227 Current Interpretive Data was last revised on 2017. HDL 58 >=40 mg/dL KEVIN ALEXIS Comment: Interpretive Data Ages < or = 19 years Acceptable: >45 mg/dL Borderline low: 40-45 mg/dL Low: <40 mg/dL Ages > or = 20 years Desirable: >or= 60 mg/dL Low: <40 mg/dL Literature References: 1. Expert Panel on Integrated Guidelines for Cardiovascular Health and Risk Reduction in Children and Adolescents. Pediatrics 2011;128:S213 2. NCEP Expert Panel. Circulation 2004;110:227 Current Interpretive Data was last revised on 2017. LDL, calculated 59 <=129 mg/dL KEVIN ALEXIS Comment: Interpretive Data Ages < or = 19 years Acceptable: <110 mg/dL Borderline high: 110-129 mg/dL High: >or= 130 mg/dL Ages > or = 20 years Optimal: <100 mg/dL Near optimal: 100-129 mg/dL Borderline high: 130-159 mg/dL High: >160 mg/dL Literature References: 1. Expert Panel on Integrated Guidelines for Cardiovascular Health and Risk Reduction in Children and Adolescents. Pediatrics 2011;128:S213 2. NCEP Expert Panel. Circulation 2004;110:227 Current Interpretive Data was last revised on 2017. Non-HDL Cholesterol 64 mg/dL KEVIN ALEXIS Comment: Interpretive Data Ages < or = 19 years Acceptable: <120 mg/dL Borderline high: 120-144 mg/dL High: >145 mg/dL Ages > or = 20 years When triglycerides are >200 mg/dL, Non-HDL cholesterol is a secondary target of therapy with treatment goals that are 30 mg/dL greater than the LDL cholesterol target. Literature References: 1. Expert Panel on Integrated Guidelines for Cardiovascular Health and Risk Reduction in Children and Adolescents. Pediatrics 2011;128:S213 2. NCEP Expert Panel. Circulation 2004;110:227 Current Interpretive Data was last revised on 2017. Chol/HDL ratio 2 [facility] Blood 03/10/2022 11:2 1 AM LOG TURNER 03/10/2022 2:13 PM LOG TURNER Iraida Gaxiola SERVICE DELIVERY CONSULTANT LAB BLOOD ORDERABLES Final Resul t Performing Organization Address [facility] de Phone Number [facility] [phone] [address] Department [place] [address] * (ABNORMAL) Hemoglobin A1c (03/23/2020 10:36 PM LOG TURNER) Hgb A1C 9.3(H) 4.0 - 5.6 % [facility] Estimated Average Glucose 220 mg/dL [facility] Comment: The ADA recommends reporting an estimated Average Glucose (eAG) with all Hemoglobin A1c results using the equation derived from a study of 507 normal and diabetic adults. Minority populations were underrepresented and children were not included. (Diabetes Care 31:0491-1416, 2008). The eAG is not equivalent to a fasting glucose. Blood specimen (specimen) Venous blood specimen / Unknown 03/23/2020 10:36 PM LOG TURNER 03/23/2020 10:43 PM LOG TURNER Bright Pearson MD PhD LAB BLOOD ORDER TAMARA Final Result Performing Organization Address [facility] de Phone Number [facility] [place] [address] from Last 3 Months or Most Recently Relevant to Health Maintenance Insurance [facility] CHOICE PLUS [facility] CHOICE PLUS [employer]IG[employer] OPEN ACCESS [facility] CHOICE PLUS CIGNA ALLEGIANCE Care Teams Coffin Maker Relationship Specialty Start Date End Date Iraida Gaxiola NP [address] [facility] [address] [place] [address] PCP - General Family Medicine 02/01/24 Mitch Jaramillo Jr., MD [phone] [facility] [address] [place] [address] Consulting Physician Pediatrics 03/10/22 Yusuf Simmons MD [employer] [facility] [place] [address] Referring Physician Allergy and Immunology 03/10/22
--- OUTSIDE RECORDS SUMMARY | 2024-11-27 00:30 | XMS_ITS | Clinical Summary ---
Author Organization [facility] Address [address] [place] [address] Phone Care Team Providers Care Special Warfare Combatant Crewman Name Role Phone Unavailable Primary Care Provider Unavailabl e Allergies Active Allergy Reactions Criticality Noted Date Comments Gluten Hives High 03/17/2024 Medications insulin lispro (HUMALOG PEN SUBCUT) Inject by subcutaneous injection. Active insulin glargine,hum.re c.anlog (LANTUS SUBCUT) Inject by subcutaneous injection. Active ciprofloxacin (CIPRO ORAL) Take by mouth. Ac tive lithium carbonate (ESKALITH IR) 150 mg Capsule Take 150 mg by mouth 2 times daily. Active vortioxetine (TRINTELLIX) 5 mg tablet Take 5 mg by mouth daily. 4 Active tiZANidine (Zanaflex) 4 mg Tablet Take 1 Tablet (4 mg) by mouth every 6 hours as needed for Spasm. 20 Tablet 4 Active ondansetron (ZOFRAN) 4 mg Tablet Take 1 Tablet (4 mg) by mouth every 6 hours as needed for Nausea/Emesis. 30 Tablet 4 Active Encounters Date Type Department Care Team Description 11/06/2024 External Device Data [facility] Provider, Abstract 11/05/2024 External Device Data [facility] Provider, Abstract 10/22/2024 External Device Data [facility] Provider, Abstract 10/15/2024 External Device Data [facility] Provider, Abstract 10/15/2024 External Device Data [facility] Provider, Abstract 10/15/2024 External Device Data [facility] Provider, Abstract 10/09/2024 External Device Data [facility] Provider, Abstract 08/27/2024 External Device Data [facility] Provider, Abstract 08/27/2024 External Device Data [facility]STRA[facility] Provider, Abstract from Last 3 Months Social History Tobacco Use Types Packs/Day Years Used Date Smoking Tobacco: Former Cigarettes Smokeless Tobacco: Never Tobacco Cessation:Counseling Given: Not Answered Alcohol Use Standard Drinks/Week Comments Yes 0 (1 standard drink = 0.6 oz pur e alcohol) Comments No Sex and Gender Information Value Date Recorded Sex Assigned at Not on file Legal Sex Female 4:16 PM ENGRAVER Gender Identity Not on file Sexual Orientation Not on file Last Filed Vital Signs Vital Sign Reading Time Taken Comments Blood Pressure 111/67 03/17/2024 8:10 PM ENGRAVER Pulse 67 03/17/2024 8:10 PM ENGRAVER Temperature 36.8 C (98.3 F) 03/17/2024 8:10 PM ENGRAVER Respiratory Rate 18 03/17/2024 8:10 PM ENGRAVER Oxygen Saturation 99% 03/17/2024 8:10 PM ENGRAVER Inhaled Oxygen Concentration - - Weight 59 kg (130 lb) 03/17/2024 4:28 PM ENGRAVER Height 170.2 cm (5' 7) 03/17/2024 4:28 PM ENGRAVER Body Mass Index 20.36 03/17/2024 4:28 PM ENGRAVER Plan of Treatment Health Maintenance Due Date Last Done Comments CHLAMYDIA SCREENING (ANNUAL) 11-24 YEARS 2012 HPV VACCINES (1 - 3-dose series) 2016 DIABETES ANNUAL FOOT EXAM 2019 DIABETES ANNUAL RETINAL EXAM 2019 DIABETES MICROALBUMIN ANNUAL SCREEN 2019 LDL CHOLESTEROL ANNUAL 2019 DTAP/TDAP/TD VACCINES (1 - Tdap) 2020 HEPATITIS B VACCINES (1 of 3 - 19+ 3-dose series) 2020 CERVICAL CANCER SCREENING 2022 HPV/Cotest (21-29) 2022 PAP SMEAR 2022 DIABETES HBA1C Q 6 MONTHS 08/09/2023 02/07/2023, INFLUENZA VACCINE (#1) 2024 2, 11/12/2021, 07/23/2021 Insurance [employer] OPEN ACCESS HMO [facility] [id number]
--- OUTSIDE RECORDS SUMMARY | 2024-11-27 00:30 | XMS_ITS | Clinical Summary ---
Author Organization [facility] Address [address] [place] [address] Care Team Providers Care Honey Liquefier Name Role Phone Clint Sams MD, Mitch Unavailable [phone] Yusuf Simmons MD Unavailable [phone] Iraida Gaxiola NP Primary Care Provider [phone] Allergies Active Allergy Reactions Criticality Noted Date [...] Will have her sign records from her marker hand we can get appropriate records and labs Assessment & Plan (03/10/2022 12:32 PM NURSE CARE MANAGER): A1c 7.5% x 06/[address] Jaramillo (endo) and states she last saw him approximately 3 months ago. Will need to get records. Generalized anxiety disorder 03/10/2022 Assessment & Plan (03/10/2022 12:34 PM NURSE CARE MANAGER): Pt used to be on Sertraline but states it wasn't the correct medication for her. She is currently finding a counselor and will follow up sooner if she feels she needs to trial medication again. Denies SI. MTHFR mutation 03/10/2022 Hives 03/10/2022 Assessment & Plan (03/10/2022 12:33 PM NURSE CARE MANAGER): Chronic, sees Dr. Simmons (cyber incident analyst) and takes Zyrtec. Will use Benadryl prn. [...] 12/09/2018 Assessment & Plan (03/14/2018 3:03 PM NURSE CARE MANAGER): Right sided superior aspect of tonsil Warm salt water gargles and spits after meals and before bedtime or use mouth wash Bilateral impacted cerumen 03/13/2018 0 12/09/2018 Assessment & Plan (08/10/2018 12:24 PM CDT): Avoid all ear cleaning techniques Avoid water to ears Hearing test - call with results Dysfunction of both eustachian tubes 03/13/2018 12/09/2018 Assessment & Plan (03/14/2018 3:03 PM NURSE CARE MANAGER): Flonase 2 sprays into each nostril while looking down over the sink, do not sniff in or blow nose after use. Hearing loss 03/13/2018 12/09/2018 Assessment & Plan (08/10/2018 12:24 PM CDT): Hearing test - call with results Assessment & Plan (03/14/2018 3:02 PM NURSE CARE MANAGER): Follow up with a hearing test in 4-6 weeks Otitis externa 02/18/2016 12/09/2018 Overview (08/04/2016): Otitis externa Assessment & Plan (03/14/2018 3:02 PM NURSE CARE MANAGER): Start ear drops to both ears, let [...] Refused),04/24/2022(Deferred: Patient Refused) Meningococcal MCV4P (Menactra) 01/19/2019 Medical History Medical History Date Comments Type 1 diabetes mellitus Diabete s type 1 Hives PMDD (premenstrual dysphoric disorder) MTHFR gene mutation Substance abuse, binge pattern (HCC) 06/06/2023 Family History Medical History Relation Name Comments No Known Problems Father Arthritis Mother Autoimmune disease Mother Relation Name Status Comments Father Alive Mother Alive Social History Tobacco Use Types Packs/Day Years Used Date Smoking Tobacco: Never Smokeless Tobacco: Never Tobacco Cessation:Counseling Given: Not Answered PHQ-2 Answer Date Recorded PHQ-2 Total Score (If total score is 3 or more points, staff should administer the PHQ-9) 2 12/14/2023 Comments No Sex and Gender Information Value Date Recorded Sex Assigned at Not on file Legal Sex Female 11:45 AM NURSE CARE MANAGER Gender Identity Not on file Sexual Orientation Not on file Obstetrics History Last Filed Vital Signs Vital Sign Reading Time Taken Comments Blood Pressure 98/54 03/12/2024 6:47 PM NURSE CARE MANAGER Pulse 68 03/12/2024 6:47 PM NURSE CARE MANAGER Temperature 36.7 C (98 F) 03/12/2024 6:47 PM NURSE CARE MANAGER Respiratory Rate 19 03/12/2024 6:47 PM NURSE CARE MANAGER Oxygen Saturation 98% 03/12/2024 6:47 PM NURSE CARE MANAGER Inhaled Oxygen Concentration - - Weight 61.2 kg (135 lb) 03/12/2024 6:47 PM NURSE CARE MANAGER Height 170.2 cm (5' 7) 03/12/2024 6:47 PM NURSE CARE MANAGER Body Mass Index 21.14 03/12/2024 6:47 PM NURSE CARE MANAGER Plan of Treatment Health Maintenance Due Date Last Done Comments Albumin Creatinine Ratio, Urine 2001 Cervical Cancer Screening 2001 Chlamydia and Gonorrhea (GC/ CT) Screening 2001 Foot Exam 2001 Hepatitis C Screening 2001 Dilated Eye Exam 2011 DTaP/Tdap/Td Vaccine (1 - Tdap) 2012 HPV Vaccines (1 - 3-dose series) 2016 Meningococcal B Vaccine (1 o f 2 - Standard) 2017 Hepatitis B Screening 2019 Regular Well Visit/Exam 18-64 2019 Pneumococcal vaccine <65 (1 of 2 - PCV) 2020 Hemoglobin A1C 09/20/2020 03/23/2020 Varicella Vaccines (1 of 2 - 13+ 2-dose series) 12/10/2021 Lipid Panel 03/10/2023 03/10/2022 eGFR 03/10/2023 03/10/2022 TSH Level 06/01/2024 06/01/2023, 03/10/2022 Depression Screening 12/13/2024 12/14/2023, 06/06/2023, 06/06/2023, Additional history exists Influenza Vaccine (#1) 2024 11/12/2021, 2021 Procedures Procedure Name Priority Date/Time Associated Diagnosis Comments EGFR Routine 03/10/2022 11:21 AM NURSE CARE MANAGER Type 1 diabetes mellitus with hyperglycemia (HCC) LIPID PANEL Routine 03/10/2022 11:21 AM NURSE CARE MANAGER Type 1 diabetes mellitus with hyperglycemia (HCC) THYROID FUNCTION CASCADE Routine 03/10/2022 11:21 AM NURSE CARE MANAGER Anxiety HEMOGLOBIN A1C STAT 03/23/2020 10:36 PM NURSE CARE MANAGER from Last 3 Months or Most Recently Relevant to Health Maintenance Results * eGFR (03/10/2022 11:21 AM NURSE CARE MANAGER) eGFR 135 mL/min/1. 73 m2 [facility] [...] reviewed 2021. Blood 03/10/2022 11:2 1 AM NURSE CARE MANAGER 03/10/2022 2:14 PM NURSE CARE MANAGER us Iraida Gaxiola NP LAB BLOOD ORDERABLES Final Resul t [facility]IN [facility]LEX[facility] [id number] Department [place] [address] * TSH reflex to free T4 (03/10/2022 11:21 AM NURSE CARE MANAGER) TSH 1.77 0.30 - 4.20 mcIUnit/mL [facility] Blood 03/10/2022 11:2 1 AM NURSE CARE MANAGER 03/10/2022 2:13 PM NURSE CARE MANAGER us Iraida Gaxiola DIVISION ORDER ANALYST LAB BLOOD ORDERABLES Final Resul t KEVIN [address] [address] Department [place] [address] * Lipid panel (03/10/2022 11:21 AM NURSE CARE MANAGER) Cholesterol 122 30 - 199 mg/dL [facility] Comment: Interpretive Data Ages < or = [...] on 2017. Triglycerides 23 <=149 mg/dL [facility] Comment: Interpretive Data Ages < or = [...] last revised on 2017. Chol/HDL ratio 2 [facility] Blood 03/10/2022 11:2 1 AM NURSE CARE MANAGER 03/10/2022 2:13 PM NURSE CARE MANAGER us Iraida Gaxiola NP LAB BLOOD ORDERABLES Final Resul t [facility] [id number] [address] Department [place] [address] * (ABNORMAL) Hemoglobin A1c (03/23/2020 10:36 PM NURSE CARE MANAGER) Hgb A1C 9.3(H) 4.0 - 5.6 % [facility] Estimated Average Glucose 220 mg/dL [facility] Comment: The ADA recommends reporting an estimated Average Glucose (eAG) with all Hemoglobin A1c results using the equation derived from a study of 507 normal and diabetic adults. Minority populations were underrepresented and children were not included. (Diabetes Care 31:9155-8587, 2008). The eAG is not equivalent to a fasting glucose. Blood specimen (specimen) Venous blood specimen / Unknown 03/23/2020 10:36 PM NURSE CARE MANAGER 03/23/2020 10:43 PM NURSE CARE MANAGER Bright Pearson MD PhD LAB BLOOD ORDER TAMARA Final Result [facility] Department [place] [address] from Last 3 Months or Most Recently Relevant to Health Maintenance Insurance [facility] CHOICE PLUS [facility] CHOICE PLUS CIGNA OPEN ACCESS [facility] CHOICE PLUS CIGNA ALLEGIANCE Care Teams Honey Liquefier Relationship Specialty Start Date End Date Iraida Gaxiola NP [address] [facility] [address] [place] [address] PCP - General Family Medicine 02/01/24 Mitch Jaramillo Jr., MD [address] [facility] [address] [place] [address] Consulting Physician Pediatrics 03/10/22 Yusuf Simmons MD [address] [facility] [place] [address] Referring Physician Allergy and Immunology 03/10/22
[2024-11-27 00:34] LABS: Influenza A QL RT-PCR Negative (Negative); Influenza B QL RT-PCR Negative (Negative); RSV RNA, RT-PCR Negative (Negative); SARS-CoV-2 RNA PCR Negative (Negative)
[2024-11-27 00:38] LABS: Alanine Aminotransferase 16 U/L (6-35); Albumin Level 4.6 g/dL (3.5-5.1); Alkaline Phosphatase 57 U/L (38-126); Anion Gap 10 mmol/L (4-12); Aspartate Amino Transferase 26 U/L (14-36); Bilirubin,Total 0.7 mg/dL (0.2-1.3); Blood Urea Nitrogen 10 mg/dL (7-17); Calcium 9.4 mg/dL (8.4-10.2); Carbon Dioxide 23 mmol/L (22-30); Chloride 102 mmol/L (98-107); Estimated CRCL calculation 138 ml/min; Estimated Glomerular Filt Rate > 60; Glucose 204 mg/dL (65-110); Lipase 36 U/L (23-300); Potassium 3.9 mmol/L (3.4-5.0); Sodium 135 mmol/L (137-145); Total Protein 7.7 g/dL (6.3-8.2)
[2024-11-27 00:45] LABS: Hematocrit 41.2 % (37.0-47.0); Hemoglobin 14.0 g/dL (12.0-15.0); Immature Granulocyte Percent A 1.2 % (0-0.5); Lymphocytes Absolute Auto 1.17 K/mm3 (0.9-3.2); Mean Corpuscular HGB Conc 34.0 g/dl (32-36); Mean Corpuscular Hemoglobin 29.9 pg (26-34); Mean Corpuscular Volume 88.0 fl (80-100); Nucleated Red Blood Cells Absolute Auto 0.000 K/mm3 (0.0-0.012); Nucleated Red Blood Cells Perc 0.0 % (0.0-0.2); Platelet Count Result 225 k/mm3 (150-375); Red Blood Count 4.68 M/mm3 (4.2-5.4); White Blood Count 5.2 K/mm3 (4.5-10.0)
[2024-11-27] MEDS: KETOROLAC 30 MG/ML VIAL (*BKC) IV PUSH (03:55)
== END 2024-11-27 03:55 | disposition home or self-care (01) ==
PROVIDERS: Student in an Organized Health Care Education/Training Program; Emergency Provider Physician Assistant; PCP Nurse Practitioner Family
DX: R11.0 Nausea (principal); R10.9 Unspecified abdominal pain; Z20.822 Contact with and (suspected) exposure to COVID-19; Z87.442 Personal history of urinary calculi
CPT/HCPCS: 36415; 71045; 74176; 80053; 81001; 81025; 83690; 85025; 87637; 96361; 96374; 96375; 99284; J1885; J2270; J2405; J7030